=== PATIENT | male | born 1995 | race Two or more races ===

== ENCOUNTER 2018-09-03 20:37 | Emergency (ER) | payer OTHER ==
[~2018-09-03] VITALS: Ht 172.7 cm; Wt 81.6 kg
[2018-09-03 20:48] VITALS: BP 149/77
== END 2018-09-03 21:16 | disposition left against medical advice (07) ==
LOC: EDBD 20:37 → ER 20:40
DX: R45.851 Suicidal ideations (principal); Z53.21 Procedure and treatment not carried out due to patient leaving prior to being seen by health care provider